=== PATIENT | female | born 1990 | race Caucasian/White ===

== ENCOUNTER 2017-09-11 22:35 | Emergency (ER) | payer MEDICAID ==
[~2017-09-11] VITALS: Ht 152.4 cm; Wt 55.0 kg
[2017-09-11 23:39] LABS: BASOPHILS % 0.5 % (0.0-2.0); EOSINOPHILS % 2.3 % (0.0-5.0); HEMATOCRIT. 38.1 % (36.0-48.0); HEMOGLOBIN. 12.6 g/dL (12.0-16.0); LYMPHOCYTES % 48.5 % (20.0-50.0); MEAN CORPUSCULAR HEMOGLOBIN 28.6 pg (28.0-32.0); MEAN CORPUSCULAR VOLUME 86.2 fL (81.0-99.0); MEAN PLATELET VOLUME 9.5 fl (7.4-10.4); MONOCYTES % 14.6 % (2.0-8.0); NEUTROPHILS % 34.1 % (40.0-76.0); PLATELET 219 x1000/uL (130-400); RED BLOOD CELL COUNT 4.41 mill/uL (4.2-5.4); RED CELL DISTRIBUTION WIDTH 12.3 % (11.6-14.6)
[2017-09-11 23:49] LABS: CHLORIDE 104 mEq/L (98-107)
[2017-09-12 00:10] LABS: T4 FREE 7.47 ng/dL (0.76-1.46)
[2017-09-12 01:07] VITALS: BP 130/70
[2017-09-12] MEDS ORDERED: LORAZEPAM 2MG/ML CPJ IV SCH (01:33)
[2017-09-12] MEDS ORDERED: METHIMAZOLE 5MG TABLET PO SCH (01:40)
== END 2017-09-12 01:47 | disposition home or self-care (01) ==
LOC: ER 23:03
DX: E05.90 Thyrotoxicosis, unspecified without thyrotoxic crisis or storm (principal); I10 Essential (primary) hypertension; R56.9 Unspecified convulsions; F84.0 Autistic disorder
CPT/HCPCS: 36415; 71045; 80053; 83690; 84439; 84443; 85025; 93005; 96374; 99285; J2060

== ENCOUNTER 2020-07-10 23:41 | Inpatient (IN) | payer MEDICAID, OTHER ==
[~2020-07-10] VITALS: Ht 157.5 cm; Wt 77.1 kg
[2020-07-11] VITALS (15 sets, daily range): BP systolic 103–135; BP diastolic 59–83
[2020-07-11] MEDS ORDERED: HALOPERIDOL LACTATE 5MG/ML VIAL IM STA ×2 (00:01→00:33)
[2020-07-11] MEDS ORDERED: DIPHENHYDRAMINE 50MG/ML VIAL IM STA ×2 (00:01→00:33)
[2020-07-11] MEDS ORDERED: LORAZEPAM 2MG/ML CPJ IM STA ×2 (00:01→00:33)
[2020-07-11] MEDS ORDERED: ONDANSETRON HCL 4MG/2ML INJ IV STA (00:02)
[2020-07-11] MEDS ORDERED: SODIUM CHLORIDE 0.9% 1,000 ML IV ONE (00:15)
[2020-07-11] MEDS ORDERED: KETAMINE HCL 50 MG/ML 10ML IM ONE ×2 (01:00→01:45)
[2020-07-11 01:46] LABS: HEMATOCRIT. 34.5 % (36.0-48.0); HEMOGLOBIN. 11.2 g/dL (12.0-16.0); MEAN CORPUSCULAR HEMOGLOBIN 28.1 pg (28.0-32.0); MEAN CORPUSCULAR VOLUME 86.1 fL (81.0-99.0); MEAN PLATELET VOLUME 8.5 fl (7.4-10.4); PLATELET 289 x1000/uL (130-400); RED CELL DISTRIBUTION WIDTH 14.1 % (11.6-14.6)
[2020-07-11 01:53] LABS: CHLORIDE 107 mEq/L (98-107)
[2020-07-11 01:57] LABS: ETHANOL BLOOD < 10 mg/dL
[2020-07-11 02:09] LABS: HCG SCREEN NEGATIVE
[2020-07-11 02:38] LABS: CLARITY URINE CLOUDY (CLEAR); COLOR URINE DARK YELLOW (YELLOW); KETONES URINE 4+ (NEGATIVE); LEUKOCYTE ESTERASE URINE TRACE (NEGATIVE); NITRITE URINE NEGATIVE (NEGATIVE); OCCULT BLOOD URINE NEGATIVE (NEGATIVE); PROTEIN URINE 1+ (NEGATIVE); SPECIFIC GRAVITY URINE 1.034 (1.005-1.030)
[2020-07-11 02:48] LABS: *AMPHETAMINES SCREEN URINE NEGATIVE (NEGATIVE); *BARBITURATES SCREEN URINE NEGATIVE (NEGATIVE); *BENZODIAZEPINES SCREEN URINE NEGATIVE (NEGATIVE); *COCAINE SCREEN URINE NEGATIVE (NEGATIVE); METHADONE URINE SCREEN NEGATIVE (NEGATIVE); OPIATES URINE SCREEN NEGATIVE (NEGATIVE)
[2020-07-11 02:49] LABS: PHENCYCLIDINE URINE SCREEN NEGATIVE (NEGATIVE)
[2020-07-11] MEDS ORDERED: IOHEXOL-300 100 ML BOTTLE ONE (02:56)
[2020-07-11 03:02] LABS: CANNABINOID URINE SCREEN PRESUMTIVE POSITIVE (NEGATIVE)
[2020-07-11] MEDS ORDERED: CEFTRIAXONE 1 G PREMIX 50 ML IV ONE (03:45)
[2020-07-11] MEDS ORDERED: ONDANSETRON HCL 4MG/2ML INJ IV ONE (05:00)
[2020-07-11] MEDS ORDERED: MORPHINE SULFATE 4 MG/ML CPJ (NOT FOR IM USE) IV ONE (05:00)
[2020-07-11] MEDS ORDERED: HALOPERIDOL LACTATE 5MG/ML VIAL IM ONE (06:45)
[2020-07-11 07:20] LABS: PLATELET ESTIMATE NORMAL
[2020-07-11] MEDS ORDERED: ACETAMINOPHEN 325MG TABLET PO PRN (11:15)
[2020-07-11] MEDS ORDERED: ONDANSETRON HCL 4MG/2ML INJ IV PRN (11:15)
[2020-07-11] MEDS ORDERED: OLANZAPINE 10 MG/VIAL IM SCH (11:15)
[2020-07-11] MEDS: SODIUM CHLORIDE 0.9% 1,000 ML IV SCH ×2 (11:32→21:26)
[2020-07-11] MEDS: ENOXAPARIN 40MG/0.4ML SYR SUBCUT SCH (14:20)
[2020-07-11] MEDS ORDERED: LORA-250 PO (16:07)
[2020-07-11] MEDS ORDERED: LAMO200T50 PO (16:07)
[2020-07-11] MEDS ORDERED: PARO40TA75 MT (16:07)
[2020-07-11] MEDS ORDERED: GUAN2TAB PO (16:07)
[2020-07-11] MEDS ORDERED: QUET200T PO (16:07)
[2020-07-11] MEDS ORDERED: TAP5 PO (16:07)
[2020-07-11] MEDS: LORAZEPAM 2MG/ML CPJ IV PRN (16:47)
[2020-07-11] MEDS ORDERED: GUANFACINE HCL 2 MG TABLET PO SCH (21:00)
[2020-07-11] MEDS: QUETIAPINE FUMARATE 50MG TABLET PO SCH (21:00)
[2020-07-12] VITALS (82 sets, daily range): BP systolic 79–157; BP diastolic 27–126
[2020-07-12] MEDS ORDERED: CEFTRIAXONE 1 G PREMIX 50 ML IV SCH (06:00)
[2020-07-12 06:06] LABS: BASOPHILS % 0.3 % (0.0-2.0); EOSINOPHILS % 1.1 % (0.0-5.0); HEMATOCRIT. 34.3 % (36.0-48.0); HEMOGLOBIN. 11.1 g/dL (12.0-16.0); LYMPHOCYTES % 20.3 % (20.0-50.0); MEAN CORPUSCULAR HEMOGLOBIN 28.7 pg (28.0-32.0); MEAN CORPUSCULAR VOLUME 88.3 fL (81.0-99.0); MEAN PLATELET VOLUME 9.1 fl (7.4-10.4); MONOCYTES % 10.4 % (2.0-8.0); NEUTROPHILS % 67.9 % (40.0-76.0); PLATELET 264 x1000/uL (130-400); RED BLOOD CELL COUNT 3.89 mill/uL (4.2-5.4); RED CELL DISTRIBUTION WIDTH 14.5 % (11.6-14.6)
[2020-07-12 06:21] LABS: CHLORIDE 111 mEq/L (98-107)
[2020-07-12] MEDS: SODIUM CHLORIDE 0.9% 1,000 ML IV SCH (07:04)
[2020-07-12] MEDS: CEFTRIAXONE 1,000 MG in DEXTROSE 5% WATER 50 ML IV SCH (08:32)
[2020-07-12] MEDS ORDERED: GUANFACINE HCL 2 MG TABLET PO SCH (09:00)
[2020-07-12] MEDS ORDERED: METHIMAZOLE 5MG TABLET PO SCH (09:00)
[2020-07-12] MEDS: QUETIAPINE FUMARATE 50MG TABLET PO SCH ×2 (09:55→21:10)
[2020-07-12] MEDS: ENOXAPARIN 40MG/0.4ML SYR SUBCUT SCH (09:55)
[2020-07-12] MEDS: LAMOTRIGINE 100MG TABLET PO SCH (10:56)
[2020-07-12] MEDS: LACTULOSE 20G/30ML UDC PO SCH ×2 (14:02→21:10)
[2020-07-13] VITALS (27 sets, daily range): BP systolic 96–176; BP diastolic 39–109
[2020-07-13] MEDS: SODIUM CHLORIDE 0.9% 1,000 ML IV SCH ×2 (04:13→13:30)
[2020-07-13] MEDS: LORAZEPAM 2MG/ML CPJ IV PRN (04:41)
[2020-07-13] MEDS: LACTULOSE 20G/30ML UDC PO SCH ×2 (06:00→14:00)
[2020-07-13] MEDS: CEFTRIAXONE 1,000 MG in DEXTROSE 5% WATER 50 ML IV SCH (08:33)
[2020-07-13] MEDS: QUETIAPINE FUMARATE 50MG TABLET PO SCH (08:53)
[2020-07-13] MEDS: LAMOTRIGINE 100MG TABLET PO SCH (08:53)
[2020-07-13] MEDS: ENOXAPARIN 40MG/0.4ML SYR SUBCUT SCH (08:54)
[2020-07-13] MEDS ORDERED: METHIMAZOLE 10MG TABLET PO SCH (09:00)
[2020-07-13] MEDS ORDERED: NITR-87 MT (15:31)
[2020-07-13] MEDS ORDERED: METH10TA7 MT (15:31)
[2020-07-13] MEDS ORDERED: LACT10SO30 MT (15:31)
== END 2020-07-13 17:04 | disposition home or self-care (01) | DRG 720 ==
LOC: ER 23:41 → MICUSO 07-11 02:13 → ENRESERV 07-11 07:27 → EDBEDREQSVC 07-11 11:10 → ENRESERV 07-11 19:41 → MICUSO 07-11 20:15 → 6EST 07-13 11:12
PROVIDERS: ADMIT Internal Medicine; ATTEND Internal Medicine
DX: A41.9 Sepsis, unspecified organism (principal); G92 Toxic encephalopathy; N39.0 Urinary tract infection, site not specified; K56.41 Fecal impaction; F84.0 Autistic disorder; I10 Essential (primary) hypertension; Z20.822 Contact with and (suspected) exposure to COVID-19; E05.90 Thyrotoxicosis, unspecified without thyrotoxic crisis or storm; F41.9 Anxiety disorder, unspecified; Z78.1 Physical restraint status; E03.9 Hypothyroidism, unspecified
CPT/HCPCS: 36415; 71045; 74177; 80048; 80053; 80305; 80307; 80320; 80329; 81003; 82962; 83605; 84439; 84443; 84480; 84484; 84703; 85025; 93005; 93970; 99291; J0696; J1200; J1630; J1650; J2060; J2270; J2405; J3490; J7030; J7060; Q9967; U0003; G0480

== ENCOUNTER → 2021-07-05 | Day surgery (SDC) | payer MEDICARE, MEDICAID ==
[~2021-07-05] MED LIST: GUAN2TAB PO; LACT10SO30 MT; LAMO200T50 PO; LEVO500T89 MT; LIDOCAINE HCL/EPINEPHRINE 1%-EPI 1:100,000 30 ML VIAL INFIL ONE; LORA-250 PO; METH10TA7 MT; PARO40TA75 MT; QUET200T PO; SODIUM BICARBONATE 4% (2.4MEQ) 5ML VIAL IV ONE
== END | disposition home or self-care (01) ==
LOC: RAD 09:29
PROVIDERS: ATTEND Surgery
DX: R92.8 Other abnormal and inconclusive findings on diagnostic imaging of breast (principal); N63.12 Unspecified lump in the right breast, upper inner quadrant; Z79.899 Other long term (current) drug therapy
CPT/HCPCS: 19083; 88305; A4648; J3490